=== PATIENT | female | born 1950 | race Caucasian/White ===

== ENCOUNTER 2024-01-25 17:44 | Inpatient (IN) | payer MEDICARE ==
[~2024-01-25] VITALS: Ht 147.3 cm; Wt 54.9 kg
[2024-01-25] MEDS: SODIUM CHLORIDE 0.9% 1000ML 1,000 ML IV ONE (18:47)
[2024-01-25 19:12] LABS: BASOPHILS # (AUTO) 0.1 (0.0-0.1); BASOPHILS % 0.7 % (0.0-1.0); EOSINOPHILS # (AUTO) 0.1 (0.0-0.4); EOSINOPHILS % 1.2 % (0.0-6.0); HEMATOCRIT 33.8 % (34.2-44.1); HEMOGLOBIN 11.2 g/dL (12.0-16.0); LYMPHOCYTES # (AUTO) 1.4 (1.0-3.2); LYMPHOCYTES % 21.3 % (18.0-39.1); MEAN CORPUSCULAR HEMOGLOBIN 31.3 pg (28-32); MEAN CORPUSCULAR HGB CONC 33.1 g/dL (31-35); MEAN CORPUSCULAR VOLUME 94.4 fL (81-99); MONOCYTES # (AUTO) 0.7 (0.2-0.8); MONOCYTES % 10.2 % (4.4-11.3); NEUTROPHILS # (AUTO) 4.5 (2.1-6.9); NEUTROPHILS % 66.3 % (38.7-80.0); PLATELET COUNT 207 x10e3/uL (140-360); RED BLOOD COUNT 3.58 x10e6/uL (3.6-5.1); RED CELL DISTRIBUTION WIDTH 13.9 % (11.7-14.4); WHITE BLOOD COUNT 6.76 x10e3/uL (4.8-10.8)
[2024-01-25 19:31] LABS: ALBUMIN/GLOBULIN RATIO 0.7 (0.8-2.0); ANION GAP 13.4 mmol/L (8-16); BILIRUBIN,TOTAL 7.9 mg/dL (0.2-1.2); CALCIUM 8.9 mg/dL (8.4-10.2); CREATININE, SERUM 0.86 mg/dL (0.57-1.11); TOTAL PROTEIN 7.3 g/dL (6.5-8.1)
[2024-01-25 19:33] LABS: POTASSIUM 3.4 mmol/L (3.5-5.1)
[2024-01-25 19:44] LABS: BILIRUBIN,URINE SMALL (NEGATIVE); CLARITY,URINE CLEAR (CLEAR); COLOR,URINE YELLOW (YELLOW); GLUCOSE, URINE NEGATIVE (NEGATIVE); KETONES,URINE NEGATIVE (NEGATIVE); LEUKOCYTE ESTERASE ,URINE NEGATIVE (NEGATIVE); NITRITE,URINE NEGATIVE (NEGATIVE); PH,URINE 6.5 (5 - 7); PROTEIN,URINE DIPSTICK NEGATIVE (NEGATIVE); URINE UROBILINOGEN 0.2 mg/dL (0.2 - 1)
[2024-01-25 20:04] LABS: WBC,URINE (MAN) 0-5 /HPF (0-5)
[2024-01-25 20:05] LABS: EPITHELIAL CELLS,URINE FEW /LPF
[2024-01-25] MEDS ORDERED: IOPAMIDOL 370 MG/ML 100 ML INFUS..BTL INJ ONE (21:26)
[2024-01-25 21:56] LABS: INR 1.07; PROTHROMBIN TIME 14.5 seconds (11.9-14.5)
[2024-01-25 21:57] LABS: PARTIAL THROMBOPLASTIN TIME 40.9 seconds (23.8-35.5)
[2024-01-25] MEDS ORDERED: Morphine 2mg Syringe 2 MG/ML SYR IV PRN (22:30)
[2024-01-25 23:11] VITALS: PULSE 87; RESP 18; TEMP 97.9
[2024-01-26] VITALS (9 sets, daily range): BP systolic 152–172; BP diastolic 67–89; PULSE 82–102; RESP 17–19; TEMP 98.2–98.9; O2SAT 97–100
[2024-01-26] MEDS: SODIUM CHLORIDE 0.9% 1000ML 1,000 ML IV SCH (00:08)
[2024-01-26] MEDS: ONDANSETRON HCL INJ 2MG/ML 2ML 2 MG/ML VIAL IV PRN (00:09)
[2024-01-26] MEDS ORDERED: OMEPRAZOLE20 MG PO (01:26)
[2024-01-26] MEDS ORDERED: CETIRIZINE HCL10 MG PO (01:26)
[2024-01-26] MEDS ORDERED: CEFDINIR300 MG PO (01:26)
[2024-01-26] MEDS ORDERED: AMLODIPINE BESYL5 MG PO (01:26)
[2024-01-26] MEDS ORDERED: ATORVASTATIN CA40 MG PO (01:26)
[2024-01-26] MEDS ORDERED: LOSARTAN POTAS100 MG PO (01:26)
[2024-01-26 06:18] LABS: BASOPHILS % 0.6 % (0.0-1.0); EOSINOPHILS # (AUTO) 0.1 (0.0-0.4); EOSINOPHILS % 2.3 % (0.0-6.0); HEMOGLOBIN 10.5 g/dL (12.0-16.0); LYMPHOCYTES # (AUTO) 0.9 (1.0-3.2); LYMPHOCYTES % 17.2 % (18.0-39.1); MEAN CORPUSCULAR HEMOGLOBIN 31.3 pg (28-32); MEAN CORPUSCULAR HGB CONC 32.8 g/dL (31-35); MEAN CORPUSCULAR VOLUME 95.5 fL (81-99); MONOCYTES # (AUTO) 0.5 (0.2-0.8); MONOCYTES % 9.4 % (4.4-11.3); NEUTROPHILS # (AUTO) 3.7 (2.1-6.9); NEUTROPHILS % 70.1 % (38.7-80.0); PLATELET COUNT 164 x10e3/uL (140-360); RED BLOOD COUNT 3.35 x10e6/uL (3.6-5.1); RED CELL DISTRIBUTION WIDTH 13.8 % (11.7-14.4); WHITE BLOOD COUNT 5.23 x10e3/uL (4.8-10.8)
[2024-01-26 06:36] LABS: ALBUMIN 2.5 g/dL (3.5-5.0); ALBUMIN/GLOBULIN RATIO 0.7 (0.8-2.0); ANION GAP 10.3 mmol/L (8-16); CALCIUM 7.9 mg/dL (8.4-10.2); CREATININE, SERUM 0.76 mg/dL (0.57-1.11); TOTAL PROTEIN 6.3 g/dL (6.5-8.1)
[2024-01-26 06:40] LABS: POTASSIUM 3.3 mmol/L (3.5-5.1)
[2024-01-26] MEDS: LOSARTAN POTASSIUM 100 MG TAB PO SCH (12:15)
[2024-01-26] MEDS: POTASSIUM BICARBONATE/CIT AC 20 MEQ TABLET.EFF PO ONE (14:55)
[2024-01-26] MEDS: TRAMADOL HCL 50 MG TAB PO PRN (15:02)
[2024-01-27] VITALS (8 sets, daily range): BP systolic 142–175; BP diastolic 70–88; PULSE 62–102; RESP 16–19; TEMP 97.9–98.9; O2SAT 95–100
[2024-01-27] MEDS: CLONIDINE HCL 0.1 MG TAB PO PRN (01:11)
[2024-01-27 05:57] LABS: BASOPHILS # (AUTO) 0.1 (0.0-0.1); EOSINOPHILS # (AUTO) 0.1 (0.0-0.4); EOSINOPHILS % 1.5 % (0.0-6.0); HEMATOCRIT 33.4 % (34.2-44.1); HEMOGLOBIN 10.8 g/dL (12.0-16.0); LYMPHOCYTES # (AUTO) 1.1 (1.0-3.2); LYMPHOCYTES % 18.8 % (18.0-39.1); MEAN CORPUSCULAR HEMOGLOBIN 30.9 pg (28-32); MEAN CORPUSCULAR HGB CONC 32.3 g/dL (31-35); MEAN CORPUSCULAR VOLUME 95.7 fL (81-99); MONOCYTES # (AUTO) 0.7 (0.2-0.8); MONOCYTES % 11.2 % (4.4-11.3); PLATELET COUNT 171 x10e3/uL (140-360); RED BLOOD COUNT 3.49 x10e6/uL (3.6-5.1); RED CELL DISTRIBUTION WIDTH 14.1 % (11.7-14.4); WHITE BLOOD COUNT 5.91 x10e3/uL (4.8-10.8)
[2024-01-27 06:30] LABS: ALBUMIN 2.4 g/dL (3.5-5.0); ALBUMIN/GLOBULIN RATIO 0.6 (0.8-2.0); BILIRUBIN,TOTAL 8.3 mg/dL (0.2-1.2); CALCIUM 8.1 mg/dL (8.4-10.2); CREATININE, SERUM 0.67 mg/dL (0.57-1.11); TOTAL PROTEIN 6.3 g/dL (6.5-8.1)
[2024-01-27 06:52] LABS: % IRON SATURATION 34 % (15-50); IRON 77 ug/dL (50-170); TOTAL IRON BINDING CAPACITY 224 ug/dL (261-478); TRANSFERRIN 160 mg/dL (180-382)
[2024-01-27 06:53] LABS: FOLATE 18.5 ng/mL (7.0-15.4)
[2024-01-27] MEDS ORDERED: PANTOPRAZOLE SODIUM 20 MG TABLET.DR PO SCH (07:30)
[2024-01-27] MEDS: PANTOPRAZOLE SOD 40 MG TABEC PO SCH (08:56)
[2024-01-27] MEDS ORDERED: ATORVASTATIN 40 MG TAB PO SCH (09:00)
[2024-01-27 11:23] LABS: HEPATITIS B SURFACE AG (P) Nonreactive
[2024-01-27 11:24] LABS: HEPATITIS C ANTIBODY Nonreactive
[2024-01-27] MEDS: POTASSIUM BICARBONATE/CIT AC 20 MEQ TABLET.EFF PO ONE (11:37)
[2024-01-27] MEDS: AMLODIPINE BESYLATE 5 MG TAB PO SCH (14:51)
[2024-01-27] MEDS: DOCUSATE SODIUM 100 MG CAP PO SCH (14:51)
[2024-01-28] VITALS (7 sets, daily range): BP systolic 144–159; BP diastolic 63–89; PULSE 59–99; RESP 17–19; TEMP 97.3–98.4; O2SAT 95–100
[2024-01-28 06:55] LABS: ALBUMIN 2.3 g/dL (3.5-5.0); ALBUMIN/GLOBULIN RATIO 0.6 (0.8-2.0); BILIRUBIN,TOTAL 9.8 mg/dL (0.2-1.2); CALCIUM 7.8 mg/dL (8.4-10.2); CREATININE, SERUM 0.65 mg/dL (0.57-1.11); TOTAL PROTEIN 6.4 g/dL (6.5-8.1)
[2024-01-28] MEDS: POLYETHYLENE GLYCOL 3350 17 GM PACK PO SCH (08:49)
[2024-01-28] MEDS: POTASSIUM BICARBONATE/CIT AC 20 MEQ TABLET.EFF PO ONE (13:05)
[2024-01-29] VITALS (9 sets, daily range): BP systolic 139–160; BP diastolic 80–99; PULSE 54–98; RESP 17–19; TEMP 97.5–98.7; O2SAT 96–100
[2024-01-29 06:49] LABS: ALBUMIN 2.4 g/dL (3.5-5.0); ALBUMIN/GLOBULIN RATIO 0.6 (0.8-2.0); ANION GAP 10.8 mmol/L (8-16); BILIRUBIN,TOTAL 10.2 mg/dL (0.2-1.2); CALCIUM 8.1 mg/dL (8.4-10.2); CREATININE, SERUM 0.64 mg/dL (0.57-1.11); TOTAL PROTEIN 6.5 g/dL (6.5-8.1)
[2024-01-29 06:51] LABS: POTASSIUM 2.8 mmol/L (3.5-5.1)
[2024-01-29 07:11] LABS: CHOL/HDL RATIO 15.2 (3.0-3.6)
[2024-01-29] MEDS: POTASSIUM CHLORIDE 20 MEQ TAB CR PO ONE ×2 (08:14→11:55)
[2024-01-29] MEDS: POTASSIUM CHLORIDE 20MEQ/100ML 100 ML IV ONE (11:54)
[2024-01-29] MEDS: BISACODYL 10 MG SUPP PR ONE (11:55)
[2024-01-30] VITALS (7 sets, daily range): BP systolic 152–174; BP diastolic 80–93; PULSE 50–97; RESP 18–21; TEMP 97.8–98.2; O2SAT 97–100
[2024-01-30 06:31] LABS: ALBUMIN 2.3 g/dL (3.5-5.0); ALBUMIN/GLOBULIN RATIO 0.5 (0.8-2.0); ANION GAP 11.9 mmol/L (8-16); BILIRUBIN,TOTAL 10.1 mg/dL (0.2-1.2); CALCIUM 8.2 mg/dL (8.4-10.2); CREATININE, SERUM 0.63 mg/dL (0.57-1.11); TOTAL PROTEIN 6.6 g/dL (6.5-8.1)
[2024-01-30 06:39] LABS: POTASSIUM 2.9 mmol/L (3.5-5.1)
[2024-01-30] MEDS: KCL 20 MEQ PACKET/ ORAL SOLN PO ONE ×2 (07:58→11:51)
[2024-01-30] MEDS ORDERED: POTASSIUM CHLORIDE 20 MEQ TAB CR PO ONE ×2 (09:00→10:00)
[2024-01-30] MEDS: POTASSIUM CHLORIDE 20 MEQ TAB CR PO ONE (11:32)
[2024-01-31] VITALS: BP 165/83; PULSE 93; RESP 18; TEMP 98; O2SAT 97
[2024-01-31 04:00] VITALS: BP 168/81; PULSE 94; RESP 18; TEMP 98; O2SAT 98
[2024-01-31 06:10] LABS: ALBUMIN 2.3 g/dL (3.5-5.0); ALBUMIN/GLOBULIN RATIO 0.5 (0.8-2.0); ANION GAP 12.1 mmol/L (8-16); BILIRUBIN,TOTAL 9.3 mg/dL (0.2-1.2); CALCIUM 8.2 mg/dL (8.4-10.2); CREATININE, SERUM 0.64 mg/dL (0.57-1.11); TOTAL PROTEIN 6.5 g/dL (6.5-8.1)
[2024-01-31 06:11] LABS: POTASSIUM 3.1 mmol/L (3.5-5.1)
[2024-01-31 07:59] VITALS: BP 134/88; PULSE 73; RESP 18; TEMP 97.8; O2SAT 99
[2024-01-31 08:00] VITALS: BP 134/88; PULSE 73; RESP 18; TEMP 97.8; O2SAT 99
[2024-01-31] MEDS ORDERED: IBUPROFEN 200 MG TAB PO PRN (10:30)
[2024-01-31] MEDS: POTASSIUM CHLORIDE 10MEQ EA PO ONE (11:17)
[2024-01-31] MEDS: IBUPROFEN 600 MG TAB PO PRN (11:19)
[2024-01-31 12:00] VITALS: BP 169/89; PULSE 88; RESP 18; TEMP 97.8; O2SAT 99
[2024-02-05 13:19] LABS: CMV IGM ANTIBODY <30.0 AU/mL (0.0-29.9)
== END 2024-01-31 12:50 | disposition home or self-care (01) | DRG 442 ==
LOC: ER 18:06 → ERHOLD 22:19 → MED/SURG3 23:13
PROVIDERS: ADMIT Internal Medicine; ATTEND Internal Medicine
DX: E80.7 Disorder of bilirubin metabolism, unspecified (principal); E44.0 Moderate protein-calorie malnutrition; R17 Unspecified jaundice; E87.1 Hypo-osmolality and hyponatremia; R74.8 Abnormal levels of other serum enzymes; R10.13 Epigastric pain; T37.5X5A Adverse effect of antiviral drugs, initial encounter; T36.95XA Adverse effect of unspecified systemic antibiotic, initial encounter; R50.9 Fever, unspecified; E87.6 Hypokalemia; K59.00 Constipation, unspecified; R11.2 Nausea with vomiting, unspecified; T50.3X5A Adverse effect of electrolytic, caloric and water-balance agents, initial encounter; Y92.230 Patient room in hospital as the place of occurrence of the external cause; R51.9 Headache, unspecified; I10 Essential (primary) hypertension; E78.00 Pure hypercholesterolemia, unspecified; K21.9 Gastro-esophageal reflux disease without esophagitis; Z71.3 Dietary counseling and surveillance; Z68.25 Body mass index [BMI] 25.0-25.9, adult; Z87.440 Personal history of urinary (tract) infections; Z90.49 Acquired absence of other specified parts of digestive tract; Z79.899 Other long term (current) drug therapy; Y92.009 Unspecified place in unspecified non-institutional (private) residence as the place of occurrence of the external cause
CPT/HCPCS: 36415; 74177; 74181; 76700; 80053; 80061; 81001; 82607; 82746; 83540; 83690; 83735; 84132; 84466; 85025; 85045; 85610; 85730; 86644; 86645; 87798; 99252; 99284; J0696; J2270; J2405; J3480; J7030; Q9967

== ENCOUNTER 2024-09-10 10:29 | Emergency (ER) | payer MEDICARE ==
[~2024-09-10] VITALS: Ht 144.8 cm; Wt 51.3 kg
[~2024-09-10 10:29] MED LIST: AMLODIPINE BESYL5 MG PO; ATORVASTATIN CA40 MG PO; CEFDINIR300 MG PO; CETIRIZINE HCL10 MG PO; LOSARTAN POTAS100 MG PO; OMEPRAZOLE20 MG PO
[2024-09-10 11:18] VITALS: PULSE 84; RESP 16; TEMP 98.2; O2SAT 100
[2024-09-10 12:22] LABS: BASOPHILS % 0.6 % (0.0-1.0); EOSINOPHILS % 0.4 % (0.0-6.0); HEMATOCRIT 37.2 % (34.2-44.1); HEMOGLOBIN 13.2 g/dL (12.0-16.0); LYMPHOCYTES # (AUTO) 0.8 (1.0-3.2); LYMPHOCYTES % 10.2 % (18.0-39.1); MEAN CORPUSCULAR HEMOGLOBIN 32.7 pg (28-32); MEAN CORPUSCULAR HGB CONC 35.5 g/dL (31-35); MEAN CORPUSCULAR VOLUME 92.1 fL (81-99); MONOCYTES % 6.6 % (4.4-11.3); NEUTROPHILS # (AUTO) 6.6 (2.1-6.9); NEUTROPHILS % 81.8 % (38.7-80.0); PLATELET COUNT 231 x10e3/uL (140-360); RED BLOOD COUNT 4.04 x10e6/uL (3.6-5.1); RED CELL DISTRIBUTION WIDTH 11.9 % (11.7-14.4); WHITE BLOOD COUNT 8.04 x10e3/uL (4.8-10.8)
[2024-09-10 12:23] LABS: BASOPHILS # (AUTO) 0.1 (0.0-0.1); MONOCYTES # (AUTO) 0.5 (0.2-0.8)
[2024-09-10 12:34] LABS: CLARITY,URINE SL CLOUDY (CLEAR); COLOR,URINE YELLOW (YELLOW)
[2024-09-10 12:35] LABS: BILIRUBIN,URINE NEGATIVE (NEGATIVE); GLUCOSE, URINE NEGATIVE (NEGATIVE); KETONES,URINE NEGATIVE (NEGATIVE); LEUKOCYTE ESTERASE ,URINE TRACE (NEGATIVE); NITRITE,URINE NEGATIVE (NEGATIVE); PH,URINE 7 (5 - 7); PROTEIN,URINE DIPSTICK NEGATIVE (NEGATIVE); URINE UROBILINOGEN 0.2 mg/dL (0.2 - 1)
[2024-09-10 12:39] LABS: BACTERIA,URINE FEW /HPF; EPITHELIAL CELLS,URINE FEW /LPF; RBC,URINE 0-5 /HPF (0-5); WBC,URINE (MAN) 0-5 /HPF (0-5)
[2024-09-10 12:40] LABS: TRANSITIONAL EPI CELLS,URINE FEW
[2024-09-10 13:07] LABS: ALBUMIN 4.2 g/dL (3.5-5.0); ALBUMIN/GLOBULIN RATIO 1.3 (0.8-2.0); ANION GAP 15.2 mmol/L (8-16); BILIRUBIN,TOTAL 1.1 mg/dL (0.2-1.2); CALCIUM 9.5 mg/dL (8.4-10.2); CREATININE, SERUM 0.78 mg/dL (0.57-1.11); POTASSIUM 4.2 mmol/L (3.5-5.1); TOTAL PROTEIN 7.5 g/dL (6.5-8.1)
== END 2024-09-10 14:48 | disposition home or self-care (01) ==
LOC: ER 11:20
DX: R42 Dizziness and giddiness (principal); S00.83XA Contusion of other part of head, initial encounter; M54.2 Cervicalgia; M54.50 Low back pain, unspecified; W01.0XXA Fall on same level from slipping, tripping and stumbling without subsequent striking against object, initial encounter; Y92.89 Other specified places as the place of occurrence of the external cause; I10 Essential (primary) hypertension; E78.5 Hyperlipidemia, unspecified
CPT/HCPCS: 36415; 70450; 71045; 72125; 72131; 80053; 81001; 84484; 85025; 93005; 99284